=== PATIENT | female | born 1990 ===

== ENCOUNTER 2025-07-07 09:59 | Emergency (ER) | payer OTHER ==
[~2025-07-07] VITALS: Ht 154.9 cm; Wt 72.6 kg
[~2025-07-07 09:59] MED LIST: PEPCID40 MG PO; ZOFRAN4 MG PO
[2025-07-07] MEDS ORDERED: TETRACAINE HCL 20 DR/ML DROPS OP STA (11:09)
[2025-07-07] MEDS ORDERED: ERYTHROMYCIN OPH1 GM OP (11:34)
== END 2025-07-07 15:40 | disposition home or self-care (01) ==
LOC: ER 10:00
DX: T15.81XA Foreign body in other and multiple parts of external eye, right eye, initial encounter (principal); X58.XXXA Exposure to other specified factors, initial encounter; Y93.89 Activity, other specified; Y92.012 Bathroom of single-family (private) house as the place of occurrence of the external cause; Y99.9 Unspecified external cause status; Z91.013 Allergy to seafood